=== PATIENT | male | born 2000 | race Caucasian/White ===

== ENCOUNTER 2024-03-05 08:13 | Emergency (ER) | payer BC ==
[~2024-03-05] VITALS: Ht 172.7 cm; Wt 84.1 kg
[2024-03-05 08:21] VITALS: TEMP 97.4
[2024-03-05] MEDS ORDERED: ZITHROMAX Z PA250 MG PO (11:49)
[2024-03-05 11:59] VITALS: BP 124/81; PULSE 81
== END 2024-03-05 11:59 | disposition home or self-care (01) ==
LOC: COL.ER 08:13
DX: J06.9 Acute upper respiratory infection, unspecified (principal); Z88.0 Allergy status to penicillin; Z88.1 Allergy status to other antibiotic agents